=== PATIENT | female | born 1995 | race Caucasian/White ===

== ENCOUNTER 2019-07-07 16:08 | Emergency (ER) | payer MEDICAID ==
[~2019-07-07] VITALS: Ht 144.8 cm; Wt 53.5 kg
[2019-07-07 16:12] VITALS: Ht 144.8 cm; Wt 53.5 kg
[2019-07-07 17:13] VITALS: BP 99/53
== END 2019-07-07 17:13 | disposition home or self-care (01) ==
LOC: ED 16:08
DX: N61.0 Mastitis without abscess (principal)